=== PATIENT | female | born 1955 | race Caucasian/White ===

== ENCOUNTER 2018-08-21 04:07 | Observation (INO) ==
--- NOTE | 2018-08-21 04:21 | Emergency Department Note ---
Disposition Clinical Impression: Chest pain Qualifiers: Chest pain type: unspecified Qualified Code(s): R07.9 - Chest pain, unspecified Dyspnea Qualifiers: Dyspnea type: unspecified Qualified Code(s): R06.00 - Dyspnea, unspecified Disposition: Still a Patient Condition: Good Referrals: NONE,PCP [Primary Care Provider] - Forms: ED Satisfaction Letter Time of Disposition: 06:39 Chest Pain HPI - General Chief Complaint: ED Chest Pain Stated Complaint: chest pain Time Seen by Provider: 08/21/18 04:10 Source: patient Mode of arrival: ambulatory Limitations: no limitations Vital Signs Reviewed: Yes Nursing Notes Reviewed: Yes - History of Present Illness HPI Narrative: Patient is a 63-year-old female with past medical history of GERD. Denies any other past medical history of hypertension, hyperlipidemia, diabetes, previous [place] or stents. Presents today due to substernal chest pain. Patient states that she takes omeprazole as needed for acid reflux. She states that she was having heartburn yesterday evening prior to going to bed. She took omeprazole and then went to bed. She woke up around 3 AM and had substernal chest discomfort. She described as a heavy pressure. States that it lasted for 30 minutes and then went away. She noticed this and shortness of breath along with it but denies any other radiation of the pain, arm or jaw pain, vomiting, fevers, cough. She does admit to 1 episode of loose stool but does state that she has chronic intermittent diarrhea and that this is not totally abnormal for her. She does note that with her usual GERD symptoms she has burning but says that she has never had pain like this before with acid reflux. - Related Data Allergies Allergy/AdvReac Type Severity Reaction Status Date / Time Sulfa (Sulfonamide Allergy Hives Verified 08/21/18 04:22 Antibiotics) All systems ED: reviewed and negative except as stated. Constitutional: Denies: fever Cardiovascular: Reports: chest pain Respiratory: Denies: dyspnea, sputum production Gastrointestinal: Reports: nausea. Denies: abdominal pain, vomiting, diarrhea Integumentary: Denies: rash Neurological: Denies: headache, weakness, numbness, paresthesias Chest Pain PMH - Past Medical History Medical history: Reports: GERD Physical Exam - General Limitations: no limitations General appearance: alert, in no apparent distress - Head Head exam: atraumatic, normocephalic, normal inspection - Eye Eye exam: Present: normal appearance, PERRL, EOMI - ENT ENT exam: normal exam, normal oropharynx, mucous membranes moist - Neck Neck exam: Present: normal inspection, full ROM, trachea midline - Chest Chest inspection: Present: normal inspection, symmetric chest wall rise. Absent: tenderness, rash - Respiratory Respiratory exam: Present: normal lung sounds bilaterally - Cardiovascular Cardiovascular exam: Present: normal rhythm, tachycardia, normal heart sounds - Abdominal Exam Abdominal exam: Present: soft, Non-Tender. Absent: tenderness, distention, guarding, rebound, rigidity Course Course Narrative: On initial presentation, patient was tachycardic and had an oxygen saturation 91%. However, my evaluation her oxygen saturation was within normal limits. Patient was still tachycardic in the low 100s. Otherwise, the rest of the vitals within normal limits for me on my exam. Physical exam shows mild tachycardia, lungs are clear to auscultation, no reproducible chest discomfort. Abdomen was soft and nontender. Specifically no pain in the epigastric region. She is currently asymptomatic. Her symptoms ended around 3:30 AM and she has not had any symptoms since. EKG shows some nonspecific ST changes, no EKG present and charting for comparison. Patient has no risk factors but receives a heart score of 2 based on age and nonspecific EKG findings. We will give the patient aspirin. We will go ahead and obtain chest x-ray, basic blood work, troponin. We will also obtain d-dimer due to tachycardia and hypoxia. 05:45 troponin negative. D-dimer elevated. No other major abnormality and lab work. We will proceed with CT of the chest to assess for PE. 06:38 CTA of the chest pending at this time. We will sign out to day team, Dr. Medellin and Dr. Esther Mosley for further care and disposition. Vital Signs Temperature 98.0 F 08/21/18 04:19 Pulse Rate 115 08/21/18 04:19 Respiratory Rate 18 08/21/18 04:19 Blood Pressure 162/104 08/21/18 04:19 O2 Sat by Pulse Oximetry 91 08/21/18 04:19 Temperature 98.0 F 08/21/18 04:19 Pulse Rate 102 08/21/18 06:10 Respiratory Rate 18 08/21/18 06:10 Blood Pressure 147/94 08/21/18 06:10 O2 Sat by Pulse Oximetry 98 08/21/18 06:10 Oxygen Delivery Oxygen Delivery Room Air Chest Pain - MDM Narrative Medical decision making narrative: On initial presentation, patient was tachycardic and had an oxygen saturation 91%. However, my evaluation her oxygen saturation was within normal limits. Patient was still tachycardic in the low 100s. Otherwise, the rest of the vitals within normal limits for me on my exam. Physical exam shows mild tachycardia, lungs are clear to auscultation, no reproducible chest discomfort. Abdomen was soft and nontender. Specifically no pain in the epigastric region. She is currently asymptomatic. Her symptoms ended around 3:30 AM and she has not had any symptoms since. EKG shows some nonspecific ST changes, no EKG present and charting for comparison. Patient has no risk factors but receives a heart score of 2 based on age and nonspecific EKG findings. We will give the patient aspirin. We will go ahead and obtain chest x-ray, basic blood work, troponin. We will also obtain d-dimer due to tachycardia and hypoxia. 05:45 troponin negative. D-dimer elevated. No other major abnormality and lab work. We will proceed with CT of the chest to assess for PE. 06:38 CTA of the chest pending at this time. We will sign out to day team, Dr. Medellin and Dr. Esther Mosley for further care and disposition. - Medical Records Medical records reviewed: Yes I reviewed the patient's medical records. - Lab Data Lab results reviewed: Yes I reviewed the patient's lab results. Result diagrams: 08/21/18 04:42 08/21/18 04:42 Lab Results 08/21/18 08/21/18 08/21/18 Range/Units 04:42 04:42 04:42 WBC 11.5 H (4.3-11.1) K/mcL RBC 4.85 (3.82-4.97) M/mcL Hgb 14.1 (11.5-15.4) g/dL Hct 42.8 (35.3-44.9) % MCV 88.2 (83.0-100.0) fL MCH 29.1 (28.0-33.3) pg MCHC 32.9 (31.6-35.5) g/dL RDW 12.9 (11.5-14.5) % Plt Count 261 (140-400) K/mcL MPV 10.6 (9.4-12.4) fL Immature Gran % 0.3 (0-4) % Seg Neutrophils % 77.5 % Lymphocytes % 15.9 % Monocytes % 5.6 % Eosinophils % 0.5 % Basophils % 0.2 % Neutrophils # 8.9 (1.6-8.9) K/mcL Lymphocytes # 1.8 (0.6-4.6) K/mcL Monocytes # 0.6 (0.0-1.3) K/mcL Eosinophils # 0.1 (0.0-0.6) K/mcL Basophils # 0.0 (0.0-0.2) K/mcL PT 11.6 (9.4-12.1) Seconds INR 1.0 APTT 30.7 (26.0-36.0) Seconds D-Dimer 3308 H (0-500) ng/mLFEU Sodium 138 (136-145) mEq/L Potassium 3.8 (3.5-5.1) mEq/L Chloride 108 H (98-107) mEq/L Carbon Dioxide 19 L (23-29) mEq/L BUN 13 (8-23) mg/dL Creatinine 0.51 L (0.60-1.20) mg/dL Est GFR ( Amer) > 60 (> 60) Est GFR (Non-Af Amer) > 60 (> 60) BUN/Creatinine Ratio 25 (6-26) Glucose 146 H (70-105) mg/dL Calculated Osmolality 289 (280-300) Calcium 9.1 (8.6-10.3) mg/dL Troponin I < 0.03 (< 0.04) ng/mL - Radiology Data Radiology results reviewed: Yes I reviewed the patient's radiology results. - EKG Data EKG attestation: Yes I reviewed and interpreted this EKG. EKG results narrative: 08/21/2018 at 04:13. Sinus tachycardia. Rate 101. AR 180. QRS 77. QTC 387. Normal axis. No acute ST elevation. Mild ST depression/upsloping in V4, V5, V6. T wave inversion in avl Heart Score - Score History: Slightly Suspicious EKG: Non Specific repolarisation Disturbance Age: 45-65 Risk Factors: No risk factors known Troponin: Less than normal limit HEART Score Total: 2 S.B.A.R. - S.B.A.R. Situation: Demographics, MOA Background: Presenting Complaint, Relevant PMH, Meds, & Allergies Assessment: Vital Signs, Course and respsone to treatment, Exam Concerns, Patient/Family Expectation, Pertinant Lab Results, Outstanding Labs Recommendation: Barrier(s) to disposition, Recommendation based on pending stud ies, treatments, or consults S.B.A.R. Report Given to: Dr.. Medellin and Dr. Chuy Mosley Attestation Statement - Attestation Attestation: Resident Attestation: I examined this patient and my medical decision making was reviewed with the Resident Physician. I agree with the documented findings, disposition and treatment plan as described except to the extent set forth below. We independently had [id number] contact with the patient. Patient seen with resident physician Dr. Adames. Please see resident note for further details and disposition. Patient presenting to the emergency department today for evaluation of chest pain to the center of her chest. Patient states that she does have history of acid reflux but this feels different. Patient has had intermittent episodes. Most recent episode in the hospital is described as pressure to the center of her chest. Patient without significant cardiac history. Patient has not had any previous cardiac testing. Patient will undergo further evaluation. Elevated d-dimer. CTA ordered. CTA shows peribronchial thickening and concern for bronchitis. Given her history back of respiratory symptoms do not believe this significantly explains her chest heaviness.
[2018-08-21 05:01] LABS: Basophils % 0.2 %; Eosinophils # 0.1 K/mcL (0.0-0.6); Eosinophils % 0.5 %; Hematocrit 42.8 % (35.3-44.9); Hemoglobin 14.1 g/dL (11.5-15.4); Immature Granulocytes % 0.3 % (0-4); Lymphocytes # 1.8 K/mcL (0.6-4.6); Lymphocytes % 15.9 %; Mean Corpuscular HGB Conc 32.9 g/dL (31.6-35.5); Mean Corpuscular Hemoglobin 29.1 pg (28.0-33.3); Mean Corpuscular Volume 88.2 fL (83.0-100.0); Mean Platelet Volume 10.6 fL (9.4-12.4); Monocytes # 0.6 K/mcL (0.0-1.3); Monocytes % 5.6 %; Neutrophils # 8.9 K/mcL (1.6-8.9); Platelet Count 261 K/mcL (140-400); Red Blood Count 4.85 M/mcL (3.82-4.97); Red Cell Distribution Width 12.9 % (11.5-14.5); Segmented Neutrophils % 77.5 %
[2018-08-21 05:04] LABS: Prothrombin Time 11.6 Seconds (9.4-12.1)
[2018-08-21 05:07] LABS: Activated Partial Thrombo Time 30.7 Seconds (26.0-36.0)
[2018-08-21 05:21] LABS: Troponin I < 0.03 ng/mL (< 0.04)
[2018-08-21 05:25] LABS: BUN/Creatinine Ratio 25 (6-26); Blood Urea Nitrogen 13 mg/dL (8-23); Calcium 9.1 mg/dL (8.6-10.3); Carbon Dioxide 19 mEq/L (23-29); Chloride 108 mEq/L (98-107); Glucose 146 mg/dL (70-105); Osmolality,Calculated 289 (280-300); Potassium 3.8 mEq/L (3.5-5.1); Sodium 138 mEq/L (136-145); eGFR For Non-African Americans > 60 (> 60)
[2018-08-21] MEDS ORDERED: Isovue-370 500 ML INFUS..BTL IV ONE (05:34)
[2018-08-21] MEDS ORDERED: 0.9 % Sodium Chloride 1,000 ML IVC ONE (05:42)
[2018-08-21] MEDS ORDERED: *HR* FentaNYL (PF) 100 MCG/2 ML VIAL IVP ONE (07:16)
[2018-08-21] MEDS ORDERED: Azithromycin 500 MG in D5% in Water 250 ML IVPB STA (07:25)
[2018-08-21] MEDS ORDERED: Nitroglycerin 0.4 MG TAB.SUBL SL PRN (07:34)
--- NOTE | 2018-08-21 07:58 | Emergency Department Note ---
Disposition Clinical Impression: Chest pain Qualifiers: Chest pain type: unspecified Qualified Code(s): R07.9 - Chest pain, unspecified Dyspnea Qualifiers: Dyspnea type: unspecified Qualified Code(s): R06.00 - Dyspnea, unspecified Disposition: Admitted As Inpatient Condition: Fair Referrals: NONE,PCP [Primary Care Provider] - Forms: ED Satisfaction Letter Time of Disposition: 07:58 General Adult HPI - General Chief complaint: ED Chest Pain Stated complaint: chest pain Time Seen by Provider: 08/21/18 04:10 Source: patient Mode of arrival: ambulatory Limitations: no limitations - History of Present Illness Pain Scale: 5 - Related Data Home Medications Medication Instructions Recorded Confirmed Dicyclomine [Bentyl] 10 mg PO BID PRN 08/21/18 08/21/18 Guaifenesin [Mucinex] 1,200 mg PO HS PRN 08/21/18 08/21/18 Omeprazole [PriLOSEC] 40 mg PO DAILY PRN 08/21/18 08/21/18 Phenylephrine/Dm/Acetaminop/GG 2 tab PO HS PRN 08/21/18 08/21/18 [Vicks Dayquil Severe Cold-Flu] raNITIdine HCl [Zantac] 150 mg PO BID PRN 08/21/18 08/21/18 Allergies Allergy/AdvReac Type Severity Reaction Status Date / Time Sulfa (Sulfonamide Allergy Hives Verified 08/21/18 04:22 Antibiotics) Constitutional: Denies: fever Cardiovascular: Reports: chest pain Respiratory: Denies: dyspnea, sputum production Gastrointestinal: Reports: nausea. Denies: abdominal pain, vomiting, diarrhea Integumentary: Denies: rash Neurological: Denies: headache, weakness, numbness, paresthesias Past Medical History - Past Medical History Medical history: Reports: GERD - Social History Smoking Status: Never smoker Alcohol use: Reports: none Drug use: Reports: none Physical Exam - General Limitations: no limitations General appearance: alert, in no apparent distress Course Course Narrative: Patient signed out to me by the day team Dr. france and Dr. Cage pending admission to the hospitalist. I spoke with the hospitalist reconciliation accountant Dr. Horton who agrees to accept the patient at this time. Patient remains alert and oriented 3 and hemodynamically stable prior to admission. Vital Signs Temperature 98.0 F 08/21/18 04:19 Pulse Rate 115 08/21/18 04:19 Respiratory Rate 18 08/21/18 04:19 Blood Pressure 162/104 08/21/18 04:19 O2 Sat by Pulse Oximetry 91 08/21/18 04:19 Temperature 98.0 F 08/21/18 04:19 Pulse Rate 99 08/21/18 07:21 Respiratory Rate 16 08/21/18 07:21 Blood Pressure 158/90 08/21/18 07:21 O2 Sat by Pulse Oximetry 99 08/21/18 07:21 Oxygen Delivery Oxygen Delivery Room Air Medical Decision Making - Lab Data Result diagrams: 08/21/18 04:42 08/21/18 04:42 Lab Results 08/21/18 08/21/18 08/21/18 Range/Units 04:42 04:42 04:42 WBC 11.5 H (4.3-11.1) K/mcL RBC 4.85 (3.82-4.97) M/mcL Hgb 14.1 (11.5-15.4) g/dL Hct 42.8 (35.3-44.9) % MCV 88.2 (83.0-100.0) fL MCH 29.1 (28.0-33.3) pg MCHC 32.9 (31.6-35.5) g/dL RDW 12.9 (11.5-14.5) % Plt Count 261 (140-400) K/mcL MPV 10.6 (9.4-12.4) fL Immature Gran % 0.3 (0-4) % Seg Neutrophils % 77.5 % Lymphocytes % 15.9 % Monocytes % 5.6 % Eosinophils % 0.5 % Basophils % 0.2 % Neutrophils # 8.9 (1.6-8.9) K/mcL Lymphocytes # 1.8 (0.6-4.6) K/mcL Monocytes # 0.6 (0.0-1.3) K/mcL Eosinophils # 0.1 (0.0-0.6) K/mcL Basophils # 0.0 (0.0-0.2) K/mcL PT 11.6 (9.4-12.1) Seconds INR 1.0 APTT 30.7 (26.0-36.0) Seconds D-Dimer 3308 H (0-500) ng/mLFEU Sodium 138 (136-145) mEq/L Potassium 3.8 (3.5-5.1) mEq/L Chloride 108 H (98-107) mEq/L Carbon Dioxide 19 L (23-29) mEq/L BUN 13 (8-23) mg/dL Creatinine 0.51 L (0.60-1.20) mg/dL Est GFR ( Amer) > 60 (> 60) Est GFR (Non-Af Amer) > 60 (> 60) BUN/Creatinine Ratio 25 (6-26) Glucose 146 H (70-105) mg/dL Calculated Osmolality 289 (280-300) Calcium 9.1 (8.6-10.3) mg/dL Troponin I < 0.03 (< 0.04) ng/mL
[2018-08-21] MEDS ORDERED: Naloxone 0.4 MG/ML INJ IVP PRN (08:10)
[2018-08-21] MEDS ORDERED: Aspirin 81 MG TAB.CHEW PO SCH (09:00)
--- NOTE | 2018-08-21 09:15 | Internal Med History&Physical ---
Date of Encounter: 08/21/18 Time of Encounter: 09:14 Internal Medicine - H&P: HPI Chief complaint: Chest pain Admitted From: Home Plans for Post Hospital Care: Home History of present illness: Ms. Ambrocio is a 63 year old female 63-year-old female with past medical history of GERD. Denies any other past medical history of hypertension, hyperlipidemia, diabetes, previous [place] or stents. She presented to the ER with complains of chest pain, said to be substernal, pressure-like and non-radiating with no known aggravating or relieving factors. States that it lasted for 30 minutes and then went away. She noticed this and shortness of breath along with it but denies any other radiation of the pain, arm or jaw pain, vomiting, fevers, cough. She does admit to 1 episode of loose stool but does state that she has chronic intermittent diarrhea and that this is not totally abnormal for her. She does note that with her usual GERD symptoms she has burning but says that she has never had pain like this before with acid reflux. ROS is non-contributory. Family hx is non-contributory. She is a non-smoker, denies illicit drug use Work up showed mild leukocytosis, elevated D-dimer. CTA showed bronchitis, no PE. EKG unremarkable with no prior EKGs to compare with. Trops negative She will be observed for chest pain work up and bronchitis treatment Past Med Surg Social Fam HX - Past Medical History Medical history: GERD - Social History Smoking Status: Never smoker Alcohol use: none Drug use: none Internal Medicine - H&P: Meds Dicyclomine [Bentyl] 10 mg PO BID PRN 08/21/18 [History] Guaifenesin [Mucinex] 1,200 mg PO HS PRN 08/21/18 [History] Omeprazole [PriLOSEC] 40 mg PO DAILY PRN 08/21/18 [History] Phenylephrine/Dm/Acetaminop/GG [Vicks Dayquil Severe Cold-Flu] 2 tab PO HS PRN 08/21/18 [History] raNITIdine HCl [Zantac] 150 mg PO BID PRN 08/21/18 [History] Allergy/AdvReac Type Severity Reaction Status Date / Time Sulfa (Sulfonamide Allergy Hives Verified 08/21/18 04:22 Antibiotics) All Systems PM: A 10-system review of systems was performed and is negative for pertinent findings except as documented above in the HPI. - Constitutional Constitutional: no chills, no fever(s), no night sweats - EENT Eyes: no change in vision, no discharge, no pain, no photophobia Ears: no ear discharge, no ear pain, no tinnitus Nose, mouth and throat: no dysphagia, no nasal discharge, no neck pain, no sore throat - Cardiovascular Cardiovascular ROS IM: chest pain, no diaphoresis, no dyspnea, no lightheadedness, no palpitations, no syncope - Respiratory Respiratory: no cough, no dyspnea, no wheezing, no excessive phlegm production - Gastrointestinal Gastrointestinal: dyspepsia, no abdominal pain, no diarrhea, no hematemesis, no hematochezia, no melena, no nausea, no vomiting - Genitourinary Genitourinary: no change in urinary stream, no dysuria, no flank pain, no hematuria - Musculoskeletal Musculoskeletal ROS IM: no numbness, no tingling - Integumentary Integumentary IM: no rash, no unusual bruising - Neurological Neurological ROS: no confusion, no convulsions, no focal weakness, no numbness, no tingling, no tremor(s) - Hematologic/Lymphatic Hematologic/Lymphatic: no easy bruising - Constitutional Vitals: Temp Pulse Resp BP Pulse Ox 98.4 F 92 16 126/75 98 08/21/18 09:08 08/21/18 09:08 08/21/18 09:08 08/21/18 09:08 08/21/18 09:08 Exam: see below - Head Head exam: Present: atraumatic, normocephalic - Eye Eye exam: Present: PERRL, conjuntiva pink, sclera anicteric Pupils: Present: PERRL - Neck Neck exam general surgery: Present: supple, trachea midline. Absent: lymphadenopathy - Respiratory Respiratory exam: Present: CTAB. Absent: accessory muscle use, rales, rhonchi, wheezes - Cardiovascular Cardiovascular exam: Present: RRR, +S1, +S2. Absent: diastolic murmur, gallop, rubs, systolic murmur - GI/Abdominal GI/Abdominal exam: Present: normal bowel sounds, soft, no peritoneal signs. Absent: distended, tenderness - Extremities Exam Extremities exam: Present: warm, radial pulses palpable and symmetrical. Absent: calf tenderness, cyanotic, pedal edema - Neurological Exam Neurological exam: Present: CN II-XII intact, oriented X3, no focal deficits. Absent: pronater drift, facial droop, speech deficit - Skin Skin exam: Present: dry, intact Internal Med - H&P Results - Labs CBC & Chem 7: 08/21/18 04:42 08/21/18 04:42 Labs: Short CBC 08/21/18 Range/Units 04:42 WBC 11.5 H (4.3-11.1) K/mcL Hgb 14.1 (11.5-15.4) g/dL Hct 42.8 (35.3-44.9) % Plt Count 261 (140-400) K/mcL Neutrophils # 8.9 (1.6-8.9) K/mcL BMP 08/21/18 04:42 Sodium 138 Potassium 3.8 Chloride 108 H Carbon Dioxide 19 L BUN 13 Creatinine 0.51 L Glucose 146 H Calcium 9.1 Cardiac Enzymes 08/21/18 Range/Units 04:42 Troponin I < 0.03 (< 0.04) ng/mL - Impressions ITS Impressions Chest X-Ray 08/21/18 04:17 IMPRESSION: 1. No active pulmonary disease. D/ / Leonard Hunt MD / Leonard Hunt MD Interpreting Provider: Leonard Hunt MD Chest CTA 08/21/18 05:34 IMPRESSION: No evidence of pulmonary embolism or acute pulmonary abnormality. Mild peribronchial wall thickening. Debris or secretions within segmental right lower lobe bronchi. D/ / Terrence Bush / Terrence Bush Interpreting Provider: Terrence Bush - Assessment and plan (1) Bronchitis Current Visit: Yes Status: Acute Assessment and plan: Continue Azithromycin, Robittusin, supportive care (2) GERD (gastroesophageal reflux disease) Current Visit: Yes Status: Chronic Assessment and plan: Continue home PPI Patient only took PPI prn Recommend TOBY daily dosing due to severity of symptoms Recommend follow up appt with GI upon discharge Qualifiers: Esophagitis presence: without esophagitis Qualified Code(s): K21.9 - Gastro-esophageal reflux disease without esophagitis (3) Chest pain Current Visit: Yes Status: Acute Assessment and plan: Atypical EKG with <.5mm ST depression in one lead, non-specific, no prior EKGs Patient is a non-smoker Initial trop negative Cycle trops stress test a.m Continue ASA Check lipid panel and A1C Qualifiers: Chest pain type: unspecified Qualified Code(s): R07.9 - Chest pain, unspecified - Time Spent With Patient Total time spent is greater than 50% in coordination of care (as documented) at patient's floor/unit and/or counseling patient:
[2018-08-21] MEDS ORDERED: Regadenoson 0.4 MG/5 ML SYRINGE IVP ONE (10:03)
--- NOTE | 2018-08-21 15:30 | Event Note ---
Date of Encounter: 08/21/18 Time of Encounter: 15:28 Patient placed on obs for chest pain r/o ACS Trops negative X2, EKG unremarkable, Stress test negative, EF 70% CTA done showed Bronchitis, patient was started on azithromycin IV, however she reported feeling like itching and swelling before his was discontinued. She will be discharged home on Augmentin by mouth for 5 days. Educated on diet modification for GERD and follow-up with PCP.
[2018-08-21 15:31] VITALS: BP 143/76
[2018-08-22] MEDS ORDERED: Azithromycin 250 MG TABLET PO SCH (08:15)
[2018-08-22] MEDS ORDERED: Aspirin Enteric Coated 81 MG Tablet PO SCH (09:00)
--- NOTE | 2018-08-22 13:35 | Electrocardiograph Report ---
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
== END 2018-08-21 17:11 | disposition home or self-care (01) ==
LOC: EMEROOARM 04:07 → 3BNU 04:07
PROVIDERS: ADMIT Internal Medicine; ATTEND Internal Medicine

== ENCOUNTER 2020-03-17 11:04 | Observation (INO) ==
[2020-03-17] MEDS ORDERED: Aspirin 81 MG TAB.CHEW PO ONE (11:36)
[2020-03-17 11:58] LABS: Basophils # 0.1 K/mcL (0.0-0.2); Basophils % 0.9 %; Eosinophils # 0.2 K/mcL (0.0-0.6); Eosinophils % 2.7 %; Hematocrit 42.8 % (35.3-44.9); Hemoglobin 13.9 g/dL (11.5-15.4); Immature Granulocytes % 0.5 % (0-4); Lymphocytes # 2.3 K/mcL (0.6-4.6); Lymphocytes % 30.5 %; Mean Corpuscular HGB Conc 32.5 g/dL (31.6-35.5); Mean Corpuscular Hemoglobin 29.8 pg (28.0-33.3); Mean Corpuscular Volume 91.6 fL (83.0-100.0); Mean Platelet Volume 10.6 fL (9.4-12.4); Monocytes # 0.5 K/mcL (0.0-1.3); Monocytes % 6.8 %; Neutrophils # 4.5 K/mcL (1.6-8.9); Platelet Count 260 K/mcL (140-400); Red Blood Count 4.67 M/mcL (3.82-4.97); Red Cell Distribution Width 13.2 % (11.5-14.5); Segmented Neutrophils % 58.6 %; White Blood Count 7.6 K/mcL (4.3-11.1)
[2020-03-17 12:10] LABS: BUN/Creatinine Ratio 19 (6-26); Blood Urea Nitrogen 13 mg/dL (8-23); Calcium 8.9 mg/dL (8.6-10.3); Carbon Dioxide 25 mEq/L (23-29); Chloride 105 mEq/L (98-107); Glucose 182 mg/dL (70-105); Osmolality,Calculated 293 (280-300); Potassium 3.8 mEq/L (3.5-5.1); Sodium 139 mEq/L (136-145); Troponin I < 0.03 ng/mL (< 0.04); eGFR For African Americans > 60 (> 60); eGFR For Non-African Americans > 60 (> 60)
[2020-03-17] MEDS ORDERED: Naloxone 0.4 MG/ML INJ IVP PRN (12:47)
[2020-03-17] MEDS ORDERED: ISOVUE-370 200 ML INFUS..BTL ONE ×2 (14:42→15:28)
[2020-03-17] MEDS ORDERED: *HR* Heparin 10,000 UNIT/10 ML VIAL ONE (14:42)
[2020-03-17] MEDS ORDERED: Nitroglycerin 1,000 MCG/10 ML VIAL IV ONE (14:42)
[2020-03-17] MEDS ORDERED: 0.9 % Sodium Chloride 1,000 ML ONE (14:42)
[2020-03-17] MEDS ORDERED: *HR* FentaNYL (PF) 100 MCG/2 ML VIAL ONE (14:56)
[2020-03-17] MEDS ORDERED: *HR* Midazolam HCl 2 MG/2 ML VIAL ONE (14:56)
[2020-03-17] MEDS ORDERED: Tirofiban 12.5 MG/250ML 12.5 MG/250 ML BAG ONE (15:19)
[2020-03-17] MEDS ORDERED: *HR* Ticagrelor 90 MG TABLET ONE (15:37)
[2020-03-17] MEDS ORDERED: Tirofiban 12.5 MG/250ML 12.5 MG/250 ML BAG IVC SCH (15:45)
[2020-03-17] MEDS: *HR* Ticagrelor 90 MG TABLET PO SCH (19:33)
[2020-03-18 06:24] LABS: Basophils % 0.4 %; Eosinophils # 0.3 K/mcL (0.0-0.6); Eosinophils % 2.5 %; Hematocrit 41.8 % (35.3-44.9); Hemoglobin 13.4 g/dL (11.5-15.4); Immature Granulocytes % 0.3 % (0-4); Lymphocytes # 1.9 K/mcL (0.6-4.6); Lymphocytes % 18.7 %; Mean Corpuscular HGB Conc 32.1 g/dL (31.6-35.5); Mean Corpuscular Hemoglobin 29.2 pg (28.0-33.3); Mean Corpuscular Volume 91.1 fL (83.0-100.0); Mean Platelet Volume 10.7 fL (9.4-12.4); Monocytes # 0.9 K/mcL (0.0-1.3); Monocytes % 8.5 %; Neutrophils # 6.9 K/mcL (1.6-8.9); Platelet Count 243 K/mcL (140-400); Red Blood Count 4.59 M/mcL (3.82-4.97); Red Cell Distribution Width 13.2 % (11.5-14.5); Segmented Neutrophils % 69.6 %
[2020-03-18 06:35] LABS: BUN/Creatinine Ratio 25 (6-26); Blood Urea Nitrogen 15 mg/dL (8-23); Calcium 8.8 mg/dL (8.6-10.3); Carbon Dioxide 23 mEq/L (23-29); Chloride 108 mEq/L (98-107); Chol/HDL Ratio 3.9 (0-4.9); Cholesterol 175 mg/dL (< 200); Glucose 108 mg/dL (70-105); HDL Cholesterol 45 mg/dL (40-59); LDL Cholesterol,Calculated 109 mg/dL (0-99); Osmolality,Calculated 287 (280-300); Potassium 3.9 mEq/L (3.5-5.1); Sodium 138 mEq/L (136-145); Triglycerides 105 mg/dL (< 150); eGFR For African Americans > 60 (> 60); eGFR For Non-African Americans > 60 (> 60)
[2020-03-18] MEDS: *HR* Ticagrelor 90 MG TABLET PO SCH (07:54)
[2020-03-18 08:32] LABS: Estimated Average Glucose 148 mg/dl
[2020-03-18] MEDS ORDERED: Aspirin 81 MG TAB.CHEW PO SCH (09:00)
[2020-03-18 11:40] VITALS: BP 157/78
[2020-03-18] MEDS ORDERED: *HR* Heparin 5,000 UNIT/ML VIAL SQ SCH (18:00)
== END 2020-03-18 13:30 | disposition home or self-care (01) ==
LOC: 3BNU 11:04 → EMEROOARM 11:04 → 3BNU 12:40
PROVIDERS: ADMIT Internal Medicine; ATTEND Internal Medicine